=== PATIENT | male | born 1975 | race Caucasian/White ===

== ENCOUNTER 2021-08-31 04:15 | Emergency (ER) | payer SELFPAY ==
[~2021-08-31] VITALS: Ht 172.7 cm; Wt 81.6 kg
[2021-08-31 04:29] VITALS: BP 119/71
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
--- NOTE | 2021-08-31 04:36 | NUR ---
PT BROUGHT TO BED 7 VIA [facility]
--- NOTE | 2021-08-31 05:06 | NUR ---
TO CT VIA [facility]
--- NOTE | 2021-08-31 05:15 | NUR ---
RETURNED FROM CT
[2021-08-31] MEDS ORDERED: LIDOCAINE MPF 1% 5 ML ONE (05:24)
--- NOTE | 2021-08-31 05:30 | NUR ---
SUTURING IN PROGRESS
--- NOTE | 2021-08-31 06:30 | NUR ---
RESTING IN BED WITH EYES CLOSED, RESPIRATIONS REGULAR AND UNLABORED
[2021-08-31 07:11] VITALS: BP 124/68
--- NOTE | 2021-08-31 07:12 | NUR ---
Patient discharged with v/s stable. Written and verbal after care instructions given and explained. Patient verbalized understanding. Ambulatory with steady gait. All questions addressed prior to discharge. Advised to follow up with PMD.
== END 2021-08-31 07:11 | disposition home or self-care (01) ==
LOC: MED 04:15
DX: S01.112A Laceration without foreign body of left eyelid and periocular area, initial encounter (principal); F10.129 Alcohol abuse with intoxication, unspecified; W01.198A Fall on same level from slipping, tripping and stumbling with subsequent striking against other object, initial encounter; Y92.89 Other specified places as the place of occurrence of the external cause; Y93.89 Activity, other specified; Y99.8 Other external cause status
CPT/HCPCS: 12011; 70450; 99284; J2001